=== PATIENT | female | born 1985 | race Caucasian/White ===

== ENCOUNTER → 2017-04-10 | Outpatient (CLI) | payer BC ==
[~2017-04-10] MED LIST: LABE100T16 PO; PRENTAB26 PO; SERT-234 PO
== END | disposition home or self-care (01) ==
LOC: C.PAPS 09:22
PROVIDERS: ATTEND Obstetrics & Gynecology
DX: Z01.419 Encounter for gynecological examination (general) (routine) without abnormal findings (principal); Z11.51 Encounter for screening for human papillomavirus (HPV)